=== PATIENT | female | born 1970 | race Two or more races ===

== ENCOUNTER 2018-05-31 18:05 | Emergency (ER) | payer OTHER ==
[~2018-05-31] VITALS: Ht 170.2 cm; Wt 68.4 kg
[2018-05-31] MEDS ORDERED: DEXAMETHASONE 4 MG TABLET PO ONE (19:00)
[2018-05-31] MEDS ORDERED: DIPHENHYDRAMINE 25 MG CAPSULE PO ONE (19:00)
[2018-05-31] MEDS ORDERED: DEXAMETHASONE 4 MG TABLET ONE (19:34)
[2018-05-31] MEDS ORDERED: DIPHENHYDRAMINE 25 MG CAPSULE ONE (19:34)
[2018-05-31 19:59] VITALS: BP 134/67
== END 2018-05-31 20:01 | disposition home or self-care (01) ==
LOC: ED 19:00
DX: L01.01 Non-bullous impetigo (principal); Z88.0 Allergy status to penicillin
CPT/HCPCS: 99283; Q0163